=== PATIENT | male | born 1935 | race Caucasian/White ===

== ENCOUNTER 2022-01-13 17:15 | Emergency (ER) | payer MEDICARE, OTHER ==
[~2022-01-13 17:15] MED LIST: DILTIAZEM 24HR300 M1 PO; GLIMEPIRIDE1 MG PO; LOSARTAN POTASS50 MG PO; LOW DOSE ASPIRI81 MG PO; METFORMIN HCL500 MG PO; METOPROLOL SUCC25 MG PO; NORCO 5-325 TA1 EACH PO; PRAVASTATIN SOD10 MG PO; VIT B12 PO; VIT D3 PO
[2022-01-13 18:23] LABS: HEMOGLOBIN 10.7 gm/dl (14.0-17.5); RED BLOOD COUNT 3.84 M/UL (4.20-5.50); WHITE BLOOD COUNT 10.1 K/UL (4.5-11.0)
== END 2022-01-13 23:34 | disposition home or self-care (01) ==
LOC: ER1 17:15
PROVIDERS: Physician Assistant
DX: I10 Essential (primary) hypertension (principal); N28.9 Disorder of kidney and ureter, unspecified; R53.81 Other malaise; R00.2 Palpitations; I48.91 Unspecified atrial fibrillation; E78.5 Hyperlipidemia, unspecified; Z79.84 Long term (current) use of oral hypoglycemic drugs; Z20.822 Contact with and (suspected) exposure to COVID-19
CPT/HCPCS: 80053; 82550; 82553; 84484; 85025; 93005; 96360; 99283; U0002